=== PATIENT | male | born 1975 | race Native Hawaiian/Other Pacific Islander ===

== ENCOUNTER 2017-05-06 06:06 | Inpatient (IN) | payer OTHER ==
[~2017-05-06 06:06] MED LIST: MARCAINE-EPI 0.5%-1:200,000 INFILTRATI ONE; NACL 0.9% IR ONE
[2017-05-06] MEDS ORDERED: ANCEF/STERILE WATER 2 GM/20 ML IV NR (07:00)
[2017-05-06] MEDS ORDERED: NACL BACTERIOSTATIC INFILTRATI ONE (07:06)
[2017-05-06] MEDS ORDERED: MARCAINE-EPI 0.5%-1:200,000 INFILTRATI ONE ×3 (07:25→08:45)
[2017-05-06] MEDS ORDERED: DIPRIVAN 10 MG/ML IV ONE (07:36)
[2017-05-06] MEDS ORDERED: SUBLIMAZE ONE (07:38)
--- NOTE | 2017-05-06 07:59 | Anesthesia Day of Surgery ---
Anesthesia Day of Surgery - Day of Surgery Patient Examined: Yes Patient H&P Reviewed: Yes Patient is NPO: Yes
[2017-05-06] MEDS ORDERED: PEPCID PO NR (08:00)
[2017-05-06] MEDS ORDERED: VERSED IV NR (08:00)
[2017-05-06] MEDS ORDERED: LACTATED RINGERS 1,000 ML IV SCH (08:00)
--- NOTE | 2017-05-06 08:01 | Anesthesia Consultation ---
Anesthesia Consult and Med Hx Date of service: 05/06/17 - Airway Anesthetic Teeth Evaluation: Good ROM Head & Neck: Adequate Mental/Hyoid Distance: Adequate Mallampati Class: Class III Intubation Access Assessment: Possibly Difficult - Pulmonary Exam CTA: Yes - Cardiac Exam Cardiac Exam: RRR - Pre-Operative Health Status ASA Pre-Surgery Classification: ASA3 Proposed Anesthetic Plan: General - Pulmonary Hx Smoking: Yes (STOPPED 2002,1 PACK PER WEEK X 2 YRS) Hx Asthma: Yes (RARE INHALER USE) Hx Sleep Apnea: Yes (DX SLEEP APNEA WITH CPAP USE) - Cardiovascular System Hx Hypertension: No Hx Heart Attack/AMI: No - Central Nervous System Hx Seizures: No CVA: No - Endocrine Hx Renal Disease: No Hx Liver Disease: No Hx Non-Insulin Dependent Diabetes: No - Hematic Hx Anemia: No - Other Systems Hx Alcohol Use: Yes (4 DRINKS PER WEEK) Hx Cancer: No Hx Obesity: Yes - Additional Comments Anesthesia Medical History Comments: NAC
[2017-05-06] MEDS ORDERED: ZEMURON IV ONE ×2 (08:39→09:03)
[2017-05-06] MEDS ORDERED: XYLOCAINE MPF 2% ONE (08:39)
[2017-05-06] MEDS ORDERED: DECADRON ONE (08:44)
[2017-05-06] MEDS ORDERED: BENADRYL ONE (08:44)
[2017-05-06] MEDS ORDERED: NACL 0.9% IR ONE (08:45)
[2017-05-06] MEDS ORDERED: LACTATED RINGERS 1,000 ML ONE (09:28)
[2017-05-06] MEDS ORDERED: ZOFRAN ONE (09:55)
[2017-05-06] MEDS ORDERED: TORADOL ONE (09:55)
[2017-05-06] MEDS ORDERED: BLOXIVERZ ONE (10:00)
[2017-05-06] MEDS ORDERED: ROBINUL ONE (10:00)
[2017-05-06] MEDS ORDERED: ZOFRAN IV PRN (10:02)
[2017-05-06] MEDS ORDERED: PERCOCET 5/325 PO PRN (10:02)
[2017-05-06] MEDS ORDERED: DILAUDID ONE ×2 (10:38→10:43)
[2017-05-06] MEDS: DILAUDID IV PRN ×2 (10:42→10:58)
[2017-05-06] MEDS ORDERED: ANCEF/NS 1 GM/50 ML 1 GM/50 ML BAG IV SCH (11:00)
[2017-05-06] MEDS: MORPHINE IV PRN ×2 (12:55→21:49)
--- NOTE | 2017-05-06 13:26 | Admit Criteria Form ---
Admission Criteria Documentation: AMBULATORY SURGERY EXCEPTION CRITERIA Ambulatory Surgery Exception Criteria ( Place 'X' for any and all applicable criteria): Surgery or procedure performed on ambulatory basis may require inpatient stay for[A] ANY ONE of the following(1)(2)(3)(4)(5)(6)(7)(8)(9): [X] I. A preoperative situation, condition, or finding that warrants inpatient stay as indicated by ANY ONE of the following: [] a) Inpatient care needed because of severity of a disease or condition rather than the surgery (eg, severe cardiac or respiratory disease, severe infection) (15) (16 ) (17) (18) [] b) Emergent procedure (eg, angioplasty for acute ischemia)(19) [] c) Complex surgical approach or situation as indicated by ANY ONE of the following(3): [] i) Open approach needed instead of usual endoscopic, transcatheter, or other less invasive procedure [] ii) Difficult approach because of previous operation [] iii) Airway monitoring required after open neck procedures(20)(21) [] iv) Large mass requiring unusually extensive dissection [] v) Additional complicating feature requiring inpatient care (eg, drain management)(22(23): [X] d) Major surgery in a pt with high anesthetic risk as indicated by ANY ONE of the following (2)(3)(5)(7)(8): [X] i) ASA risk class III or higher (severe systemic disease impairing function) [D] [] ii) Advanced age (eg, older than 85 years)(14)(24) [] iii) Symptomatic heart failure(25) [] iv) Symptomatic asthma or COPD(8)(21) [] v) Morbid obesity with hemodynamic or respiratory problems(20)( 21)(26)(27) [] vi) Obstructive sleep apnea(20)(21) [] vii) Former premature infants who are younger than 60 weeks [] viii) High risk for severe postoperative abnormalities (eg, severe postoperative hypocalcemia after parathyroidectomy for severe hyperparathyroidism)(27)( 28) [] ix) Unstable angina(25) [] e) Drug-related risk requiring inpatient stay as indicated by ANY ONE of the following(5)(10)(14)(32)(33) [] i) Procedure requires discontinuing drugs or other therapy (eg , antiarrhythmic medication, antiseizure medication), which necessitates inpatient observation or treatment.(18)(31) [] ii) Major surgery and high risk drug use as indicated by ANY ONE of the following: [] 1) Active abuse of cocaine or similar drug [] 2) Monoamine oxidase inhibitor use [] 3) Other drug identified as posing risk [] f) Inadequate outpatient care situation as indicated by ANY ONE of the following(5)(10)(14)(32)(33) [] i) Patient lives remote from medical facility and procedure has urgent complication potential, and temporary nearby residence cannot be arranged [] ii) Patient will have postprocedure incapacitation and inadequate assistance at home, or alternative level of care cannot be arranged. [] iii) Patient will have long general anesthesia or procedure side effect resolution time, and competent person to stay with patient on first postoperative night at home or alternative level of care cannot be arranged. []iv) Other inadequate outpatient situation that cannot be handled by other means [] II. A perioperative event, condition, or finding that warrants inpatient stay as indicated by ANY ONE of the following (1)(2)(3): [] a) Inadequate physiologic recovery: cardiovascular, respiratory, or hemodynamic status not normal or near preoperative baseline(18) [] b) Hemodynamic instability [] c) Patient not alert with near normal or baseline mental status [] d) Temperature not normal or as expected and not appropriate for outpatient treatment of condition [] e) Ambulatory or appropriate activity level status not yet achieved post procedure [E](34)(35)(36) [] f) Operative site not appropriate (eg, unexpected or excessive drainage or bleeding) [] g) Postoperative effects not resolved or adequately managed (eg, significant pain or vomiting not appropriate for outpatient or next level of care)(10)(12) [] h) Complicating features requiring inpatient care as indicated by ANY ONE of the following(37): [] i) Severe complications of procedure (eg, bowel injury, airway compromise, vascular injury,severe hemorrhage) [] ii) Extensive (eg, dissection far beyond usual scope of procedure ) or prolonged (eg, 120 minutes beyond usual) surgery needed requiring inpatient postoperative care [] iii) Conversion to an open or complex procedure that requires inpatient care (eg, open vs laparoscopic cholecystectomy, abdominal vs vaginal hysterectomy)(38) [] iv) Comorbid condition or test result identified during or post procedure that requires inpatient care (7) [] v) Malignant hyperthermia(30) [] vi) Other complicating feature requiring inpatient care(22)(23) Inpatient stay may be needed until ALL of the following are present (1)(2)(3)(4) (5)(6)(10)(14)(33)(40): []a) Physiologic recovery: cardiovascular, respiratory, and hemodynamic status normal or near preoperative baseline []b) Hemodynamic stability []c) Patient alert, with near normal or baseline mental status []d) Temperature appropriate: patient afebrile or temperature appropriate for outpt treatment of condition []e) Activity level appropriate: ambulatory or appropriate activity level post procedure []f) Operative site appropriate as indicated by ALL of the following: []i) Site dry or with expected drainage []ii) Any blood noted is as expected for procedure. []g) Postoperative effects resolved or managed as indicated by ALL of the following: []i) Pain management appropriate for outpatient (or next level of) care(10) []ii) Minimal nausea and vomiting: if present, successfully treated with oral medication(12) []iii) Headache, dizziness, or drowsiness (if present) are mild. []h) Voiding status acceptable as indicated by ANY ONE of the following: []i) Voiding spontaneously []ii) No voiding but instructions given for follow-up in 6 to 8 hours []iii) Urinary catheter in place, and instructions given for follow-up []i) Complicating features requiring inpatient care manageable at a lower level of care(37) []j) Comorbid conditions manageable at a lower level of care(37) The original [employer] content created by [employer] has been revised. The portions of the content which have been revised are identified through the use of italic text or in bold, and [email or web address] has neither reviewed nor approved the modified material. All other unmodified content is copyright [employer]. Please see references footnoted in the original [employer] edition 2016 Admission Criteria Met: Yes
--- NOTE | 2017-05-06 13:38 | Operative Report ---
PREOPERATIVE DIAGNOSIS: Right inguinal hernia. POSTOPERATIVE DIAGNOSIS: 1. Right inguinal hernia. 2. Lipoma of cord. PROCEDURE: Open right inguinal hernia repair with mesh x 2. SURGEON: Nolberto Burroughs MD ANESTHESIA: General. ESTIMATED BLOOD LOSS: Minimal. COMPLICATIONS: The patient is obese and the hernia was quite deep with a lot of fat thick down to the pubic tubercle area. The repair itself was difficult and required 2 meshes due to the depth of the hernia. PROCEDURE IN DETAIL: The patient was taken to the operating room, prepped and draped in usual sterile fashion. Incision was made using his landmarks anterior superior iliac spine and pubic tubercle. Incision was carried down to the external oblique fascia. External oblique fascia was transected down to the external inguinal ring. As previously mentioned, fair amount of fat was noted both anterior and posterior to the external oblique fascia. A slow dissection was carried out along the area of the pubic tubercle until the cord was able to be identified. The cord was then inserted with a [place] drain. Inspection of the cord structures revealed a lipoma of the cord. Weakness was also noted on the inguinal canal floor, but no indirect hernia sac was seen. A keyhole Marlex mesh, the used to reconstruct the inguinal canal floor. The mesh was secured to the Armando's ligament inferolaterally with trackers. The mesh was then medially, secured to the transversalis fascia and laterally to the iliopubic tract. Because of the depth of the bone, the mesh itself was not sufficient to cover the entire inguinal canal floor, especially the area above the internal inguinal ring. A separate mesh that had to be used and both meshes sutured. Then, the repair was continued superiorly again, medially to the transversalis fascia and laterally to the iliopubic tract. The area was then irrigated copiously and dry. Checked for hemostasis and noted to be dry. The cord once again inspected and noted to be intact. The external oblique fascia was then closed with a closed over the cord with running 3-0 Vicryl suture. Subcutaneous tissues irrigated and skin closed with elijah. 0.5% Marcaine with epinephrine was infiltrated over the fascia, subcutaneous, and skin for postoperative pain relief. Ilioinguinal nerve block was also performed. A Steri-Strip was placed in the incision and a scrotal support will also be used. The patient tolerated the procedure well and left or in stable condition. JOB# [id number] FP/NTS
--- NOTE | 2017-05-06 14:18 | Post Anesthesia Evaluation ---
- Post Anesthesia Evaluation Patient Participated: Yes Airway Patent: Yes Stable Respiratory Function: Yes Nausea/Vomiting: No Temp > 96.8F: Yes Pain Manageable: Yes Adequeate Hydration: Yes Anesthesia Complications: No Block Receding Appropriately: Not Applicable Patient on Ventilator: No
[2017-05-06] MEDS: D5/0.45NS 1,000 ML IV SCH (15:32)
[2017-05-06] MEDS: ERYTHROMYCIN LACTOBIONATE IV SCH ×2 (15:33→21:50)
[2017-05-06] MEDS: NACL 0.9% IV SCH ×2 (15:33→21:50)
[2017-05-06] MEDS ORDERED: MYLICON PO PRN (18:45)
[2017-05-07] MEDS: D5/0.45NS 1,000 ML IV SCH (03:18)
[2017-05-07 04:02] LABS: Basophils % (Auto) 0.3 % (0.0-1.8); Eosinophils % (Auto) 0.1 % (0.0-4.3); Hematocrit 46.3 % (35.5-45.6); Hemoglobin 15.1 gm/dl (11.8-15.2); Mean Corpuscular HGB Conc 33 % (32-34); Mean Corpuscular Hemoglobin 33 pg (28-32); Mean Corpuscular Volume 102 fl (84-94); Platelet Count 144 K/mm3 (140-440); Red Blood Count 4.56 M/mm3 (3.65-5.03); Red Cell Distribution Width 13.6 % (13.2-15.2); White Blood Count 13.2 K/mm3 (4.5-11.0)
[2017-05-07 05:53] LABS: Anion Gap 16 mmol/L; Blood Urea Nitrogen 9 mg/dL (9-20); Carbon Dioxide 30 mmol/L (22-30); Chloride 96.1 mmol/L (98-107); Glucose 142 mg/dL (75-100); Potassium 4.7 mmol/L (3.6-5.0); Sodium 137 mmol/L (137-145)
[2017-05-07 11:25] VITALS: BP 126/78
--- NOTE | 2017-05-07 12:54 | Progress Note ---
Assessment and Plan POD #1 Pt c/o incisional pain, otherwise doing well. tawny full liq op site clean & dry. scrotum no edema or tenderness stable reg diet ambulation may d/c today if diet tawny and pain controlled rto wed Selected Entries 05/07/17 11:22 Temperature 98.1 F Pulse Rate 64 Blood Pressure 126/78 Objective Vital Signs - 12hr 05/07/17 05/07/17 07:15 11:22 Temperature 98.1 F Pulse Rate 64 Respiratory 20 Rate Blood Pressure 126/78 O2 Sat by Pulse 97 98 Oximetry - Labs 05/07/17 03:11 05/07/17 05:15 Diabetes panel 05/07/17 Range/Units 05:15 Sodium 137 (137-145) mmol/L Potassium 4.7 (3.6-5.0) mmol/L Chloride 96.1 L (98-107) mmol/L Carbon Dioxide 30 (22-30) mmol/L BUN 9 (9-20) mg/dL Creatinine 0.6 L (0.8-1.5) mg/dL Glucose 142 H (75-100) mg/dL Calcium 9.0 (8.4-10.2) mg/dL Calcium panel 05/07/17 Range/Units 05:15 Calcium 9.0 (8.4-10.2) mg/dL Pituitary panel 05/07/17 Range/Units 05:15 Sodium 137 (137-145) mmol/L Potassium 4.7 (3.6-5.0) mmol/L Chloride 96.1 L (98-107) mmol/L Carbon Dioxide 30 (22-30) mmol/L BUN 9 (9-20) mg/dL Creatinine 0.6 L (0.8-1.5) mg/dL Glucose 142 H (75-100) mg/dL Calcium 9.0 (8.4-10.2) mg/dL Adrenal panel 05/07/17 Range/Units 05:15 Sodium 137 (137-145) mmol/L Potassium 4.7 (3.6-5.0) mmol/L Chloride 96.1 L (98-107) mmol/L Carbon Dioxide 30 (22-30) mmol/L BUN 9 (9-20) mg/dL Creatinine 0.6 L (0.8-1.5) mg/dL Glucose 142 H (75-100) mg/dL Calcium 9.0 (8.4-10.2) mg/dL
--- NOTE | 2017-05-07 12:57 | Discharge Summary ---
Short Stay Discharge Plan Activity: other (january d/c today if reg diet tawny and pain controlled. ) Weight Bearing Status: Non-Weight Bearing (no lifting over 5lbs x 3wks) Diet: regular Wound: keep clean and dry (x 5 days) Additional Instructions: surfak stool softener I po q am x 3. aleve I po q 6-8 hrs prn for breakthrough pain. scrotal support x 48 more hrs Follow up with: DONNELL MEANS MD [Staff Physician] - 05/14/17
[2017-05-07] MEDS ORDERED: NORCO 5/325 PO PRN (14:17)
--- NOTE | 2017-05-07 14:44 | Discharge Summary ---
DISCHARGE DIAGNOSIS: Right inguinal hernia. PROCEDURE: hospital, open right inguinal hernia repair with mesh. HOSPITAL COURSE: The patient is a 41-year-old gentleman who presented to the office with a persistent right groin pain after lifting heavy boxes at work. Physical exam revealed point tenderness over the right internal ring consistent with a right inguinal hernia. The patient was admitted at this time for an open right inguinal hernia repair which he underwent without incident. His postoperative course has been essentially unremarkable. Currently, the patient is postoperative day #1, afebrile and feeling well. Does complain of some right groin pain as would be expected, but otherwise no other complaints. He is tolerating a full liquid diet and has ambulated some down the halls. He has also passed flatus. Op site is clean and dry. Scrotum shows no evidence of edema or tenderness. The patient will thus be advanced to a regular diet this morning and will tentatively be discharged today if his diet is well tolerated and his pain is well controlled. The patient has been instructed to do any heavy lifting for the next few weeks and to keep his incision dry for the next 5 days. The patient will be followed up in approximately 1 week. He is being discharged on pain medications and stool softeners. JOB# [id number] JUANITA/MARY
[2017-05-07] MEDS ORDERED: MORPHINE IV PRN (16:22)
== END 2017-05-07 18:50 | disposition home or self-care (01) | DRG 352 ==
LOC: OR 06:06 → 2B-SURG 10:03
PROVIDERS: ADMIT Surgery; ATTEND Surgery
PROC: 0YU50JZ Supplement Right Inguinal Region with Synthetic Substitute, Open Approach (ICD-10-PCS; principal; 2017-05-07)
DX: K40.90 Unilateral inguinal hernia, without obstruction or gangrene, not specified as recurrent (principal); D17.9 Benign lipomatous neoplasm, unspecified; J45.909 Unspecified asthma, uncomplicated; Z87.891 Personal history of nicotine dependence; G47.30 Sleep apnea, unspecified; E66.9 Obesity, unspecified; Z68.39 Body mass index [BMI] 39.0-39.9, adult
CPT/HCPCS: 36415; 80048; 85025; 88304; 94760; C1781; J0690; J1100; J1170; J1200; J1364; J1885; J2250; J2270; J2405; J2704; J2710; J3010; J7120